=== PATIENT | female | born 1965 | race Caucasian/White ===

== ENCOUNTER → 2016-11-24 | Outpatient (CLI) | payer OTHER ==
[~2016-11-24] MED LIST: ATOR10TA66 PO; CALC-823 PO; CHOL10003 PO; DESV100T PO; MULT1CAP27 PO; RISP2TAB83 PO; UBID100C17 PO
--- NOTE | 2016-11-24 14:39 | Diagnostic Imaging Report ---
INDICATION: Thyromegaly. Thyroid sonography is performed in the routine fashion. The right thyroid lobe measures 4.5 x 1.3 x 1.4 cm. The left thyroid lobe measures 4.9 x 1.2 x 1.6 cm. There is no focal thyroid lesion. IMPRESSION: Normal-sized thyroid gland with no focal abnormality. Dictated by: Dictated on workstation # [id number]
--- NOTE | 2016-11-27 19:11 | Diagnostic Imaging Report ---
Bilateral screening mammogram. The current study was also evaluated with a Computer Aided Detection (CAD) system. INDICATION: Screening. No current complaints stated on the questionnaire. COMPARISON: 10/23/2015. FINDINGS: The breasts are composed of scattered fibroglandular densities. There are scattered benign-appearing calcifications. Allowing for technique and positional differences, no suspicious change is seen. IMPRESSION: No significant change. ACR BI-RADS Category 2: Benign findings. Result letter will be mailed to the patient. Note: At least 10% of breast cancer is not imaged by mammography. Dictated by: Dictated on workstation # [id number]
== END ==
LOC: RAD 10:47
PROVIDERS: ATTEND Family Medicine
DX: Z12.31 Encounter for screening mammogram for malignant neoplasm of breast (principal); E01.0 Iodine-deficiency related diffuse (endemic) goiter
CPT/HCPCS: 76536; 77067

== ENCOUNTER → 2019-05-10 | Outpatient (CLI) | payer OTHER ==
--- NOTE | 2019-05-10 19:12 | Diagnostic Imaging Report ---
INDICATION: Routine screening. COMPARISON is made with prior mammograms from 11/24/2016 and 10/23/2015. TECHNIQUE: 2-D and 3-D bilateral screening mammography was performed with CAD. FINDINGS: Scattered fibroglandular densities are identified bilaterally. There is a density in the slightly medial aspect of the right breast posterior depth on the CC view appearing slightly more prominent than prior exam. Additional views are recommended. No corresponding density on the MLO view is seen. Left breast is unremarkable. No suspicious calcifications are seen. IMPRESSION: BI-RADS 0 Right breast density. Additional views including spot compression and rolled CC views are recommended for further evaluation. ACR BI-RADS Category 0: Incomplete. (Needs additional imaging evaluation). Result letter will be mailed to the patient. Note: At least 10% of breast cancer is not imaged by mammography. Dictated by: Dictated on workstation # [id number]
== END ==
LOC: RAD 10:18
PROVIDERS: ATTEND Family Medicine
DX: Z12.31 Encounter for screening mammogram for malignant neoplasm of breast (principal)
CPT/HCPCS: 77067

== ENCOUNTER → 2019-05-19 | Outpatient (CLI) | payer OTHER ==
--- NOTE | 2019-05-19 09:56 | Diagnostic Imaging Report ---
INDICATION: Left breast density. Correlation is made with diagnostic mammogram earlier same day and screening mammogram from 05/10/2019. Sonographic interrogation of the right breast from approximately the 2 to 6 o'clock location was performed, asymmetries from the nipple. No sonographic abnormality is seen. No solid or cystic mass is identified. IMPRESSION: BI-RADS Category 3 No sonographic abnormalities identified. Even so, followup right mammogram in 6 months is recommended to show continued stability of a questionable right breast density. Dictated by: Dictated on workstation # [id number]
--- NOTE | 2019-05-19 15:47 | Diagnostic Imaging Report ---
INDICATION: Right breast density. Patient presents for additional views. Correlation is made with the screening mammogram from 05/10/2019. Unilateral right 2-D and 3-D diagnostic mammography was performed with CAD including spot compression CC, rolled CC and conventional 90 degree lateral views. Additional view shows some mild persistent density in the slightly medial right breast posterior depth. No corresponding density on the MLO view is seen. No suspicious calcifications are identified. IMPRESSION: BI-RADS 0 Mildly persistent density in the medial posterior right breast approximately 8 to 9 cm from the nipple. Further evaluation with ultrasound is recommended and will be performed today. ACR BI-RADS Category 0: Incomplete. (Needs additional imaging evaluation). Result letter will be mailed to the patient. Note: At least 10% of breast cancer is not imaged by mammography. Dictated by: Dictated on workstation # [id number]
== END ==
LOC: RAD 08:53
PROVIDERS: ATTEND Family Medicine
DX: R92.2 Inconclusive mammogram (principal)

== ENCOUNTER → 2020-09-10 | Outpatient (CLI) | payer OTHER ==
--- NOTE | 2020-09-11 13:03 | Diagnostic Imaging Report ---
Indication: Routine screening. Comparison is made with prior mammogram from 05/10/2019 and 11/24/2016. 2-D and 3-D bilateral screening mammography was performed with CAD. Scattered fibroglandular densities are identified bilaterally. There is a slightly nodular density in the retroareolar left breast best seen on the CC view. No definite correlate on the MLO view is identified. Additional views are recommended. The right breast is unremarkable. No malignant appearing microcalcifications are seen. Axillae are unremarkable. IMPRESSION: BI-RADS 0 Left breast density. Additional views including spot compression and rolled cc views as well as mediolateral views are recommended. ACR BI-RADS Category 0: Incomplete. (Needs additional imaging evaluation). Result letter will be mailed to the patient. Note: At least 10% of breast cancer is not imaged by mammography. ACR BI-RADS Category 0: Incomplete. (Needs additional imaging evaluation). Result letter will be mailed to the patient. Note: At least 10% of breast cancer is not imaged by mammography. Dictated by: Dictated on workstation # [id number]
== END ==
LOC: RAD 15:20
PROVIDERS: ATTEND Family Medicine
DX: Z12.31 Encounter for screening mammogram for malignant neoplasm of breast (principal)
CPT/HCPCS: 77063; 77067

== ENCOUNTER → 2020-09-28 | Outpatient (CLI) | payer OTHER ==
--- NOTE | 2020-09-28 16:18 | Diagnostic Imaging Report ---
INDICATION: Left breast density. Patient presents for additional views. CORRELATION is made with screening study from 09/10/2020. Unilateral left 2-D and 3-D diagnostic mammography was performed. This includes spot compression CC, rolled CC, as well as 90 degree lateral views. Additional views show mild persistent density in the retroareolar left breast, indeterminate. Further evaluation with ultrasound is recommended. IMPRESSION: BI-RADS 0 Mild persistent density retroareolar left breast. Further evaluation with ultrasound is recommended and will be performed today. ACR BI-RADS Category 0: Incomplete. (Needs additional imaging evaluation). Result letter will be mailed to the patient. Note: At least 10% of breast cancer is not imaged by mammography. Dictated by: Dictated on workstation # [id number]
--- NOTE | 2020-09-28 16:21 | Diagnostic Imaging Report ---
INDICATION: Left breast density. CORRELATION is made with diagnostic study earlier same day. FINDINGS: Sonographic interrogation of the retroareolar left breast was performed. No sonographic abnormality is seen. No solid or cystic mass is detected. IMPRESSION: BI-RADS Category 1 No sonographic abnormality is seen. The patient may return to routine annual screening mammography. ACR BI-RADS Category 1: Negative. Result letter will be mailed to the patient. Note: At least 10% of breast cancer is not imaged by mammography. Dictated by: Dictated on workstation # [id number]
== END ==
LOC: RAD 13:13
PROVIDERS: ATTEND Family Medicine
DX: R92.2 Inconclusive mammogram (principal)
CPT/HCPCS: 76642; 77065; G0279

== ENCOUNTER → 2021-10-04 | Outpatient (CLI) | payer OTHER ==
--- NOTE | 2021-10-04 11:05 | Diagnostic Imaging Report ---
INDICATION: Routine screening. COMPARISON: 09/10/2020 and 05/10/2019. TECHNIQUE: 2D and 3D bilateral screening mammography was performed with CAD. FINDINGS: Both breasts are heterogeneously dense, limiting the sensitivity of mammography. The parenchymal pattern is stable. No mass or malignant-appearing microcalcifications are seen. The axillae are unremarkable. IMPRESSION: No mammographic features suspicious for malignancy are identified. ACR BI-RADS Category 1: Negative. Result letter will be mailed to the patient. Note: At least 10% of breast cancer is not imaged by mammography. Dictated by: Dictated on workstation # [id number]
== END ==
LOC: RAD 09:30
PROVIDERS: ATTEND Family Medicine
DX: Z12.31 Encounter for screening mammogram for malignant neoplasm of breast (principal)
CPT/HCPCS: 77063; 77067

== ENCOUNTER → 2022-12-11 | Outpatient (CLI) | payer OTHER ==
--- NOTE | 2022-12-11 16:37 | Diagnostic Imaging Report ---
INDICATION: Routine screening. COMPARISON: 10/04/2021 and 09/10/2020. TECHNIQUE: 2D and 3D bilateral screening mammography was performed with CAD. FINDINGS: Scattered fibroglandular densities are identified bilaterally. No mass or malignant-appearing microcalcifications are seen. There are benign calcifications bilaterally. The axillae are unremarkable. IMPRESSION: No mammographic features suspicious for malignancy are identified. ACR BI-RADS Category 2: Benign findings. Result letter will be mailed to the patient. Note: At least 10% of breast cancer is not imaged by mammography. Dictated by: Dictated on workstation # [id number]
== END ==
LOC: RAD 13:16
PROVIDERS: ATTEND Family Medicine
DX: Z12.31 Encounter for screening mammogram for malignant neoplasm of breast (principal)
CPT/HCPCS: 77063; 77067